=== PATIENT | male | born 1990 | race Caucasian/White ===

== ENCOUNTER 2021-09-12 15:22 | Emergency (ER) | payer OTHER ==
[~2021-09-12] VITALS: Ht 160 cm; Wt 74.8 kg
[2021-09-12] MEDS ORDERED: SUPER THERAVIT1 EACH PO (15:30)
[2021-09-12] MEDS ORDERED: AUGMENTIN 875-1 EACH PO (15:58)
[2021-09-12 16:00] VITALS: BP 131/90
== END 2021-09-12 16:03 | disposition home or self-care (01) ==
LOC: M.ERS 15:22
DX: S61.251A Open bite of left index finger without damage to nail, initial encounter (principal); Z79.899 Other long term (current) drug therapy; Z88.2 Allergy status to sulfonamides; W54.0XXA Bitten by dog, initial encounter; Y93.89 Activity, other specified; Y92.89 Other specified places as the place of occurrence of the external cause; Y99.8 Other external cause status